=== PATIENT | female | born 1960 | race American Indian/Alaskan Native ===

== ENCOUNTER 2020-05-22 15:49 | Inpatient (IN) | payer BC ==
[2020-05-22] MEDS ORDERED: ACETAMINOPHEN 650 MG RECT SUPP PR ONE (15:59)
[2020-05-22] MEDS ORDERED: ACETAMINOPHEN 325 MG RECT SUPP PR ONE (16:01)
[2020-05-22 16:26] LABS: Basophils % (Auto) 0.4 % (0.0-1.8); Eosinophils # (Auto) 0.1 K/mm3 (0.0-0.4); Eosinophils % (Auto) 0.9 % (0.0-4.3); Hematocrit 29.5 % (30.3-42.9); Hemoglobin 9.4 gm/dl (10.1-14.3); Lymphocytes # (Auto) 0.4 K/mm3 (1.2-5.4); Mean Corpuscular HGB Conc 32 % (30-34); Mean Corpuscular Volume 90 fl (79-97); Monocytes # (Auto) 0.8 K/mm3 (0.0-0.8); Monocytes % (Auto) 11.1 % (0.0-7.3); Platelet Count 212 K/mm3 (140-440); Red Blood Count 3.27 M/mm3 (3.65-5.03); Red Cell Distribution Width 16.9 % (13.2-15.2)
--- NOTE | 2020-05-22 16:28 | XRay Report ---
CHEST 1 VIEW 05/22/2020 4:17 PM INDICATION / CLINICAL INFORMATION: fever. COMPARISON: None available. FINDINGS: SUPPORT DEVICES: None. HEART / MEDIASTINUM: No significant abnormality. LUNGS / PLEURA: No significant pulmonary or pleural abnormality. No pneumothorax. ADDITIONAL FINDINGS: There is elevation of the left hemidiaphragm. IMPRESSION: 1. No acute cardiopulmonary abnormality. 2. Elevation of the left hemidiaphragm. Signer Name: Gaurang Macias MD Signed: 05/22/2020 4:24 PM Workstation Name: [id number]
[2020-05-22 16:40] LABS: Albumin 3.7 g/dL (3.9-5); Calcium 8.4 mg/dL (8.4-10.2)
--- NOTE | 2020-05-22 16:57 | Emergency Department Report ---
ED Fever HPI - General Chief Complaint: Fever Stated Complaint: VTACH Time Seen by Provider: 05/22/20 15:59 Source: patient, family, EMS Exam Limitations: other - History of Present Illness Initial Comments: 60-year-old female the past medical history of end-stage renal disease on dialysis Sunday, , Sunday (noncompliant for 2 months), quadruple bypass presents to the hospital after family called EMS for diminished speaking and tremors. Patient was apparently seen yesterday at [facility] ED for fever and leg pain and discharged with a diagnosis of leg pain. EMS reports that they were in route to [facility] as per family request when she developed "an episode of V. tach followed by torsades" and therefore they diverted here. Upon arrival patient has upper extremity tremors with temporal temperature of 104. Patient is hesitant to speak however, when coaxed she is able to speak her name and date of and express herself. EMS tracing shows sinus tach with artifact without signs of vtach/torsades. Patient denies pain including headache and neck pain. Collateral information obtained from family who states that patient was placed on dialysis approximate 4 months ago after an episode of acute renal failure but has been noncompliant with dialysis for the past 2 months. Patient does make urine output. ED Review of Systems ROS: Stated complaint: VTACH Other details as noted in HPI Comment: All other systems reviewed and negative ED Past Medical Hx - Past Medical History Hx Hypertension: Yes Hx Sickle Cell Disease: Yes - Surgical History Additional Surgical History: C section x 4 - Social History Smoking Status: Never Smoker - Medications Home Medications: Home Medications Medication Instructions Recorded Confirmed Last Taken Type Amlodipine Besylate [Norvasc] 10 mg PO DAILY #30 tablet 03/19/18 Unknown Rx atenoloL [Tenormin] 50 mg PO QDAY #30 tablet 03/19/18 Unknown Rx ED Physical Exam - General Limitations: No Limitations - Other Other exam information: General: Mild tremors upon arrival Head: Atraumatic Eyes: normal appearance ENT: Moist mucous membranes Neck: Normal appearance, no midline tenderness, supple without nuchal rigidity Chest: Clear to auscultation bilaterally CV: tachycardia regular rhythm Abdomen: Soft, normal bowel soudnds, nontender, nondistended, no rebound or guarding Back: Normal inspection Extremity: Normal inspection, full range of motion Neuro: Alert, patient will answer questions with repeated coaxing, no facial asymmetry, speech clear, no gross motor sensory deficit, mild tremor Psych: Appropriate behavior Skin: No rash ED Course Vital Signs 05/22/20 05/22/20 05/22/20 16:00 16:05 16:45 Temperature 102.7 F H 102.7 F H Pulse Rate 88 80 Respiratory 18 16 Rate Blood Pressure 106/82 Blood Pressure [Left] O2 Sat by Pulse 100 Oximetry 05/22/20 05/22/20 05/22/20 16:55 17:01 17:05 Temperature Pulse Rate 96 H Respiratory 18 23 16 Rate Blood Pressure 107/75 Blood Pressure [Left] O2 Sat by Pulse 100 99 Oximetry 05/22/20 05/22/20 05/22/20 17:15 17:31 17:45 Temperature Pulse Rate 94 H 117 H 97 H Respiratory 17 26 H 29 H Rate Blood Pressure 107/75 97/65 97/65 Blood Pressure [Left] O2 Sat by Pulse 99 100 100 Oximetry 05/22/20 05/22/20 05/22/20 18:01 18:15 18:31 Temperature Pulse Rate 87 91 H 90 Respiratory 17 20 18 Rate Blood Pressure 97/65 97/65 101/74 Blood Pressure [Left] O2 Sat by Pulse 100 99 100 Oximetry 05/22/20 18:35 Temperature 99.3 F Pulse Rate 88 Respiratory 16 Rate Blood Pressure Blood Pressure 102/64 [Left] O2 Sat by Pulse 100 Oximetry - Reevaluation(s) Reevaluation #1: 05/22/20 18:31 I was informed by nurse that patient's family members preferred patient to be transferred to [facility] or [place]. I attempted to call both contacts provided by family members. The numbers provided for contact for Loraine Johnson at [phone] and Kacy Alex at [phone]. No one answered either phone number. I have admitted patient here since we have the facilities/specialties available to care for afebrile patient on dialysis and medical need for transfer is not needed at this time. Is unlikely that patient will be accepted for transfer without a accepting physician with admitting [facility]. We will proceed with inpatient admission here since patient has a bed assignment 05/22/20 18:48 I received call back from daughter Loraine at this time and informed of patient status with fever of unknown source in pending testing for coronavirus as well as coverage of broad-spectrum antibiotics. She did not insist on transfer at this time and was okay with patient being admitted here. She was provided patient's assigned room number. - Consultations Consultation #1: 05/22/20 17:27 case d/w Dr Sesay, will consult during admission ED Medical Decision Making - Lab Data Result diagrams: 05/22/20 16:09 05/22/20 16:09 Lab Results 05/22/20 05/22/20 05/22/20 Range/Units 15:54 16:09 16:09 WBC 7.1 (4.5-11.0) K/mm3 RBC 3.27 L (3.65-5.03) M/mm3 Hgb 9.4 L (10.1-14.3) gm/dl Hct 29.5 L (30.3-42.9) % MCV 90 (79-97) fl MCH 29 (28-32) pg MCHC 32 (30-34) % RDW 16.9 H (13.2-15.2) % Plt Count 212 (140-440) K/mm3 Lymph % (Auto) 6.0 L (13.4-35.0) % Bowman % (Auto) 11.1 H (0.0-7.3) % Eos % (Auto) 0.9 (0.0-4.3) % Baso % (Auto) 0.4 (0.0-1.8) % Lymph # (Auto) 0.4 L (1.2-5.4) K/mm3 Bowman # (Auto) 0.8 (0.0-0.8) K/mm3 Eos # (Auto) 0.1 (0.0-0.4) K/mm3 Baso # (Auto) 0.0 (0.0-0.1) K/mm3 Seg Neutrophils % 81.6 H (40.0-70.0) % Seg Neutrophils # 5.8 (1.8-7.7) K/mm3 APTT 34.5 (24.2-36.6) Sec. Sodium (137-145) mmol/L Potassium (3.6-5.0) mmol/L Chloride (98-107) mmol/L Carbon Dioxide (22-30) mmol/L Anion Gap mmol/L BUN (7-17) mg/dL Creatinine (0.6-1.2) mg/dL Estimated GFR ml/min BUN/Creatinine Ratio % Glucose (65-100) mg/dL POC Glucose 101 (70-105) mg/dL Lactic Acid (0.7-2.0) mmol/L Calcium (8.4-10.2) mg/dL Magnesium (1.7-2.3) mg/dL Total Bilirubin (0.1-1.2) mg/dL AST (5-40) units/L ALT (7-56) units/L Alkaline Phosphatase (35-129) units/L Total Protein (6.3-8.2) g/dL Albumin (3.9-5) g/dL Albumin/Globulin Ratio % 05/22/20 05/22/20 05/22/20 Range/Units 16:09 16:09 16:09 WBC (4.5-11.0) K/mm3 RBC (3.65-5.03) M/mm3 Hgb (10.1-14.3) gm/dl Hct (30.3-42.9) % MCV (79-97) fl MCH (28-32) pg MCHC (30-34) % RDW (13.2-15.2) % Plt Count (140-440) K/mm3 Lymph % (Auto) (13.4-35.0) % Bowman % (Auto) (0.0-7.3) % Eos % (Auto) (0.0-4.3) % Baso % (Auto) (0.0-1.8) % Lymph # (Auto) (1.2-5.4) K/mm3 Bowman # (Auto) (0.0-0.8) K/mm3 Eos # (Auto) (0.0-0.4) K/mm3 Baso # (Auto) (0.0-0.1) K/mm3 Seg Neutrophils % (40.0-70.0) % Seg Neutrophils # (1.8-7.7) K/mm3 APTT (24.2-36.6) Sec. Sodium 132 L (137-145) mmol/L Potassium 4.5 (3.6-5.0) mmol/L Chloride 105.5 (98-107) mmol/L Carbon Dioxide 14 L (22-30) mmol/L Anion Gap 17 mmol/L BUN 51 H (7-17) mg/dL Creatinine 3.6 H (0.6-1.2) mg/dL Estimated GFR 16 ml/min BUN/Creatinine Ratio 14 % Glucose 112 H (65-100) mg/dL POC Glucose (70-105) mg/dL Lactic Acid 1.80 (0.7-2.0) mmol/L Calcium 8.4 (8.4-10.2) mg/dL Magnesium 2.00 (1.7-2.3) mg/dL Total Bilirubin 0.40 (0.1-1.2) mg/dL AST 26 (5-40) units/L ALT 19 (7-56) units/L Alkaline Phosphatase 51 (35-129) units/L Total Protein 8.1 (6.3-8.2) g/dL Albumin 3.7 L (3.9-5) g/dL Albumin/Globulin Ratio 0.8 % - EKG Data -: EKG Interpreted by Me (DANE) EKG shows normal: sinus rhythm, ST-T waves (no stemi) Rate: tachycardia (116) - Radiology Data Radiology results: report reviewed portable cxr: elevation of left hemidiaphragm - Medical Decision Making 60-year-old female presents to the hospital with sinus tach, tremors, and fever. Symptoms improving with ED treatment. Source of fever unknown. Contrary to EMS report patient has not exhibited any cardiac arrhythmias other than sinus tachycardia which is likely secondary to fever. Patient empirically treated with vancomycin and Zosyn. Patient's been noncompliant with dialysis for 2 months but continues to have urine output. Case discussed with internet sales representative the patient does not require emergent dialysis at this time. Consult ordered. Infectious disease consult ordered. Blood cultures and Covid test pending. Isolation precautions ordered Ua pending at dispo and ultimately negative Critical Care Time: No Critical care attestation.: If time is entered above; I have spent that time in minutes in the direct care of this critically ill patient, excluding procedure time. ED Disposition Clinical Impression: Fever, ESRD (end stage renal disease) on dialysis, Dialysis patient, noncompliant Disposition: OP ADMIT IP TO THIS HOSP Is pt being admited?: Yes Condition: Stable Time of Disposition: 17:34 (Dr Mistry/hosp)
[2020-05-22] MEDS ORDERED: VANCOMYCIN 1,250 MG in SODIUM CHLORIDE 0.9% 500 ML 500 ML IV ONE (16:58)
[2020-05-22] MEDS ORDERED: PIPERACIL/TAZOBACTA 4.5/NS 100 4.5 GM/100 ML VIAL IV ONE (16:58)
[2020-05-22] MEDS ORDERED: VANCOMYCIN 1,250 MG in SODIUM CHLORIDE 0.9% 250ML 250 ML IV ONE (18:00)
[2020-05-22 18:04] LABS: Bilirubin,Urine NEG (Negative); Blood,Urine MOD (Negative); Color,Urine Yellow (Yellow); Mucus,Urine FEW /HPF; Urobilinogen,Urine < 2.0 mg/dL (<2.0)
[2020-05-22 18:44] VITALS: BP 102/64
== END 2020-05-22 20:33 | disposition left against medical advice (07) | DRG 682 ==
LOC: ED 15:49 → 3A 17:41
PROVIDERS: ADMIT Internal Medicine; ATTEND Internal Medicine
DX: I12.0 Hypertensive chronic kidney disease with stage 5 chronic kidney disease or end stage renal disease (principal); N18.6 End stage renal disease; Z91.15 Patient's noncompliance with renal dialysis; Z99.2 Dependence on renal dialysis; Z79.899 Other long term (current) drug therapy; Z53.29 Procedure and treatment not carried out because of patient's decision for other reasons
CPT/HCPCS: 36415; 71045; 80053; 81001; 82140; 82962; 83735; 85025; 85730; 87040; 93005; G0378; J2543; J3370; J7040; J7050